=== PATIENT | male | born 1990 | race Caucasian/White ===

== ENCOUNTER 2025-02-19 20:47 | Observation (INO) | payer SELFPAY ==
[~2025-02-19] VITALS: Ht 193 cm; Wt 156.2 kg
[~2025-02-19 20:47] MED LIST: ACTICIN; CEPH500 PO; CLOT1TC TOP; HYDACE5 PO; LIND1TL TOP; OMEP20ER PO; PRED5 PO; RXPROACE PO
[2025-02-19 21:35] LABS: BASOPHILS ABSOLUTE AUTO 0.03 K/mm3 (0.00-0.23); BASOPHILS PERCENT AUTO 0 % (0-2); EOSINOPHILS ABSOLUTE AUTO 0.17 K/mm3 (0.00-0.68); EOSINOPHILS PERCENT AUTO 2 % (0-6); Hematocrit 21.2 % (37.0-53.0); IMMATURE GRAN ABSOLUTE AUTO 0.06 K/mm3 (0.00-0.10); IMMATURE GRAN PERCENT AUTO 1 % (0-1); LYMPHOCYTES ABSOLUTE AUTO 2.07 K/mm3 (0.84-5.20); LYMPHOCYTES PERCENT AUTO 21 % (21-46); MONOCYTES ABSOLUTE AUTO 0.98 K/mm3 (0.16-1.47); MONOCYTES PERCENT AUTO 10 % (4-13); Mean Corpuscular HGB Conc 27.4 g/dL (31.5-36.5); Mean Corpuscular Volume 76 fL (80-100); NEUTROPHILS ABSOLUTE AUTO 6.45 K/mm3 (1.96-9.15); NEUTROPHILS PERCENT AUTO 66 % (41-73); NRBC ABSOLUTE 0.04 K/mm3 (0.00-0.02); NRBC Auto 0.4 /100 WBC (0.0-0.2); Platelet Count 383 K/mm3 (150-400); RDW Coefficient Variation 21.9 % (11.7-14.2); RDW Standard Deviation 57.8 fL (35.1-46.3)
[2025-02-19 21:46] LABS: Hemoglobin 5.8 g/dL (13.5-17.5)
[2025-02-19 21:48] LABS: Alanine Aminotransfer (ALT/SGP 35.0 U/L (12-78); Albumin, Blood 3.3 g/dL (3.4-5.0); Albumin/Globulin Ratio 0.9 (0.8-1.8); Anion Gap 11.0 mmol/L (3-11); Aspartate Aminotrans (AST/SGOT 27.0 U/L (12-37); Bilirubin, Total 0.2 mg/dL (0.1-1.0); Blood Urea Nitrogen 16.0 mg/dL (8-24); CO2, Blood 23.0 mmol/L (21-32); Calcium, Blood 8.1 mg/dL (8.5-10.1); Chloride, Blood 105.0 mmol/L (98-108); Creatinine, Blood 0.76 mg/dL (0.60-1.20); Globulin, Blood 3.7 g/dL (2.2-4.0); Glucose, Blood 239.0 mg/dL (70-99); Potassium, Blood 3.7 mmol/L (3.5-5.5); Sodium, Blood 135.0 mmol/L (136-145); Total Protein, Blood 7.0 g/dL (6.4-8.2)
[2025-02-19 22:03] LABS: Influenza A, PCR NEGATIVE (NEGATIVE); Influenza B, PCR NEGATIVE (NEGATIVE); Resp Syncytial Virus, PCR NEGATIVE (NEGATIVE); SARS-Cov-2 (COVID-19) PCR, MMC NEGATIVE (NEGATIVE)
[2025-02-19 23:52] LABS: Total Iron Binding Capacity 515.0 ug/dL (250-450)
[2025-02-20] VITALS (9 sets, daily range): BP systolic 142–178; BP diastolic 85–107
[2025-02-20] MEDS ORDERED: FLU VACC TS2025-26(6MOS UP)/PF 45 MCG/0.5 ML SYRINGE IM SCH (00:45)
[2025-02-20] MEDS ORDERED: LORazepam 2 MG/ML 1ML Injection IV SCH (00:45)
[2025-02-20] MEDS ORDERED: Ondansetron HCl 2 MG / ML 2ML Vial IV PRN (00:45)
[2025-02-20] MEDS ORDERED: NS 1,000 ML IV ONE (01:27)
[2025-02-20] MEDS ORDERED: NS 1,000 ML IV SCH (01:45)
[2025-02-20 04:36] LABS: BASOPHILS ABSOLUTE AUTO 0.03 K/mm3 (0.00-0.23); BASOPHILS PERCENT AUTO 0 % (0-2); EOSINOPHILS ABSOLUTE AUTO 0.20 K/mm3 (0.00-0.68); EOSINOPHILS PERCENT AUTO 2 % (0-6); Hematocrit 22.5 % (37.0-53.0); Hemoglobin 6.3 g/dL (13.5-17.5); IMMATURE GRAN ABSOLUTE AUTO 0.07 K/mm3 (0.00-0.10); IMMATURE GRAN PERCENT AUTO 1 % (0-1); LYMPHOCYTES ABSOLUTE AUTO 1.94 K/mm3 (0.84-5.20); LYMPHOCYTES PERCENT AUTO 22 % (21-46); MONOCYTES ABSOLUTE AUTO 0.97 K/mm3 (0.16-1.47); MONOCYTES PERCENT AUTO 11 % (4-13); Mean Corpuscular HGB Conc 28.0 g/dL (31.5-36.5); Mean Corpuscular Volume 77 fL (80-100); NEUTROPHILS ABSOLUTE AUTO 5.51 K/mm3 (1.96-9.15); NEUTROPHILS PERCENT AUTO 63 % (41-73); NRBC ABSOLUTE 0.03 K/mm3 (0.00-0.02); NRBC Auto 0.3 /100 WBC (0.0-0.2); Platelet Count 348 K/mm3 (150-400); RDW Coefficient Variation 21.3 % (11.7-14.2); RDW Standard Deviation 58.2 fL (35.1-46.3)
[2025-02-20] MEDS ORDERED: NS 250 ML IV PRN (05:20)
[2025-02-20 05:51] LABS: Alanine Aminotransfer (ALT/SGP 32.0 U/L (12-78); Albumin, Blood 3.3 g/dL (3.4-5.0); Albumin/Globulin Ratio 0.8 (0.8-1.8); Anion Gap 10.0 mmol/L (3-11); Aspartate Aminotrans (AST/SGOT 20.0 U/L (12-37); Bilirubin, Total 0.6 mg/dL (0.1-1.0); Blood Urea Nitrogen 13.0 mg/dL (8-24); CO2, Blood 24.0 mmol/L (21-32); Calcium, Blood 7.8 mg/dL (8.5-10.1); Chloride, Blood 106.0 mmol/L (98-108); Creatinine, Blood 0.78 mg/dL (0.60-1.20); Globulin, Blood 3.9 g/dL (2.2-4.0); Glucose, Blood 133.0 mg/dL (70-99); Potassium, Blood 3.8 mmol/L (3.5-5.5); Sodium, Blood 136.0 mmol/L (136-145); Total Protein, Blood 7.2 g/dL (6.4-8.2)
--- NOTE | 2025-02-20 05:56 | NUR ---
ADMIT/SHIFT SUMMARY RECEIVED REPORT FROM ED RN, PATIENT TO ROOM AT 0243, PT IND TRANSFERED TO BED. PT ALERT, ORIENTED X4; CALM AND COOPERATIVE WITH CARE. PT REPORTING DRINKING 2-6 12 OZ BEERS DAILY, PT REPORTS HE HAD BEEN DRINKING HARD ALCOHOL AND BEER ALL DAY OVER A YEAR AGO BUT HAS DECREASED, LAST DRINK 02/18/25. CIWA 0. PT DENIES PAIN, CHEST PAIN/PRESSURE, SOB, NAUSEA, DIZZINESS AND NUMB/TINGLING AT THIS TIME. PT REPORTS INTERMITTENT SOB, CHEST PRESSURE AND DIZZINESS/LIGHTHEADEDNESS OVER THE LAST WEEK. TELE SINUS/SINUS TACH, BP ELEVATED UPON ADMIT, TRENDING DOWN, TRACE EDEMA NOTED TO BLE. PT REPORTS AFTER THE FIRST SYNCOPAL EPISODE AT HOME, HE DID NOTE HIS BLE HAD SWOLLEN, BUT HE STATES "THEY ARE BACK TO NORMAL NOW". SPO2 >90% ON RA, BREATHING EVEN AND UNLABORED, LS CLEAR, DIM BASES. ABD SOFT, NONTENDER, +BT T/O; LAST BM 02/19/25. PT NOTED ABOUT A MONTH AGO RED SPOTS ON HIS RIGHT INNER CALF, NO ITCHING OR OTHER SYMPTOMS REPORTED. PT RECEIVING 2ND UNIT OF PRBC, APPEARS TO BE TOLERATING WELL. NO OTHER ACUTE CHANGES NOTED. CALL LIGHT WITHIN REACH.
[2025-02-20] MEDS ORDERED: Insulin Human Lispro 100 Units/ML 3ML Syringe SC SCH (07:30)
[2025-02-20] MEDS ORDERED: Iron Dextran 50 MG / ML 2ML Vial IV ONE (07:35)
[2025-02-20] MEDS ORDERED: Iron Dextran 975 MG in NS 250 ML IV ONE (09:00)
[2025-02-20 09:22] LABS: BASOPHILS ABSOLUTE AUTO 0.03 K/mm3 (0.00-0.23); BASOPHILS PERCENT AUTO 0 % (0-2); EOSINOPHILS ABSOLUTE AUTO 0.20 K/mm3 (0.00-0.68); EOSINOPHILS PERCENT AUTO 3 % (0-6); Hematocrit 24.6 % (37.0-53.0); Hemoglobin 7.1 g/dL (13.5-17.5); IMMATURE GRAN ABSOLUTE AUTO 0.04 K/mm3 (0.00-0.10); IMMATURE GRAN PERCENT AUTO 1 % (0-1); LYMPHOCYTES ABSOLUTE AUTO 1.40 K/mm3 (0.84-5.20); LYMPHOCYTES PERCENT AUTO 18 % (21-46); MONOCYTES ABSOLUTE AUTO 0.92 K/mm3 (0.16-1.47); MONOCYTES PERCENT AUTO 12 % (4-13); Mean Corpuscular HGB Conc 28.9 g/dL (31.5-36.5); Mean Corpuscular Volume 77 fL (80-100); NEUTROPHILS ABSOLUTE AUTO 5.20 K/mm3 (1.96-9.15); NEUTROPHILS PERCENT AUTO 67 % (41-73); NRBC ABSOLUTE 0.00 K/mm3 (0.00-0.02); NRBC Auto 0.0 /100 WBC (0.0-0.2); Platelet Count 339 K/mm3 (150-400); RDW Coefficient Variation 21.0 % (11.7-14.2); RDW Standard Deviation 57.9 fL (35.1-46.3)
[2025-02-20] MEDS ORDERED: Vitamin B-121000 MCG PO (12:46)
[2025-02-20] MEDS ORDERED: FERSU300 PO (12:47)
[2025-02-20] MEDS ORDERED: FOLI1 PO (12:49)
[2025-02-20 13:15] LABS: Hematocrit 25.2 % (37.0-53.0); Hemoglobin 7.2 g/dL (13.5-17.5)
[2025-02-20] MEDS ORDERED: OMEP20ER PO (14:50)
[2025-02-20] MEDS ORDERED: B-1100 M1 PO (14:51)
--- NOTE | 2025-02-20 15:03 | NUR ---
DISCHARGE SUMMARY REVIEWED DISCHARGE INSTRUCTIONS WITH PATIENT AND AT BEDSIDE AT 1500. DISCHARGE PAPERWORK SIGNED AT 1502. PT ABLE TO AMBULATE OUT OF HOSPITAL, TOLERATED WELL. BELONGINGS AND DISCHARGE PACKET SENT WITH PATIENT.
== END 2025-02-20 15:03 | disposition home or self-care (01) ==
LOC: ER 20:47 → PCU 20:48
PROVIDERS: Internal Medicine; Registered Nurse; Student in an Organized Health Care Education/Training Program; ADMIT Internal Medicine
DX: D50.9 Iron deficiency anemia, unspecified (principal); F10.20 Alcohol dependence, uncomplicated; R73.9 Hyperglycemia, unspecified; F17.210 Nicotine dependence, cigarettes, uncomplicated
CPT/HCPCS: 36415; 36416; 36430; 71046; 80053; 82272; 82607; 82746; 82947; 83036; 83540; 83550; 83880; 85014; 85018; 85025; 86850; 86900; 86901; 86923; 87637; 93005; 93010; 96365; 96367; 96375; 96376; 99285-25; A9270; G0378; J1750; J3411; J7030; J7050; P9016